=== PATIENT | female | born 1980 ===

== ENCOUNTER 2018-06-14 14:39 | Emergency (ER) | payer SELFPAY ==
[2018-06-14 14:45] VITALS: BP 108/67; PULSE 62; RESP 20; TEMP 98.9; O2SAT 98
[2018-06-14] MEDS ORDERED: Lactated Ringer's 1,000 ML IV STA (15:07)
--- NOTE | 2018-06-14 15:34 | ED PDOC ---
HPI: Abdomen Time Seen by Provider: 06/14/18 15:04 Chief Complaint (Nursing): Abdominal Pain Chief Complaint (Provider): Abdominal Pain History Per: Patient History/Exam Limitations: no limitations Onset/Duration Of Symptoms: Days Current Symptoms Are (Timing): Still Present Location Of Pain/Discomfort: RUQ Additional Complaint(s): 37 y/o female who is at 7 weeks presents to the ED for evaluation of RUQ abdominal pain, onset two months. Patient hadn't yet confirmed that she was until her arrival to the ED. Patient reports abdominal pain has been worsening since onset and is associated with nausea and breast tenderness. Patient notes pain worsened over the last few days thus prompting today's visit. Patient has a history of Laproscopic surgery to relieve obstruction of the left fallopian tube. Patient states she does not have a functioning right fallopian tube. Patient notes her periods are irregular. Otherwise, patient denies vomiting, vaginal discharge, vaginal bleeding, diarrhea and constipation. Patient additionally has a history of seizure disorder for which she takes carbamazepine. Patient notes of taking carbamazepine through previous . PMD: [place] [place]. Abnormal Vaginal Bleeding: No : 2 Para: 1 Past Medical History Reviewed: Historical Data, Nursing Documentation, Vital Signs Vital Signs: Last Vital Signs Temp 98.9 F 06/14/18 14:42 Pulse 62 06/14/18 14:42 Resp 20 06/14/18 14:42 BP 108/67 06/14/18 14:42 Pulse Ox 98 06/14/18 14:42 - Medical History PMH: Seizures - Surgical History Other surgeries: Laproscopic surgery to relieve obstruction of the left fallopian tube - Family History Family History: States: No Known Family Hx - Social History Current smoker - smoking cessation education provided: No Alcohol: None Drugs: Denies - Immunization History Hx Tetanus Toxoid Vaccination: No Hx Influenza Vaccination: No Hx Pneumococcal Vaccination: No - Home Medications Home Medications: Ambulatory Orders Medication Instructions Recorded Iron 1 tab PO DAILY 05/12/13 Metronidazole 500 mg PO BID 05/12/13 Famotidine [Pepcid] 40 mg PO DAILY PRN #14 tab 06/14/18 Folic Acid 0.4 mg PO DAILY #30 tablet 06/14/18 Multivit/Folic Acid/I 1 tab PO DAILY #100 tab 06/14/18 [ Plus] - Allergies Allergies/Adverse Reactions: Allergies Allergy/AdvReac Type Severity Reaction Status Date / Time No Known Allergies Allergy Verified 06/14/18 14:41 Review of Systems ROS Statement: Except As Marked, All Systems Reviewed And Found Negative Cardiovascular: Positive for: Other (breast tenderness) Gastrointestinal: Positive for: Nausea, Abdominal Pain. Negative for: Vomiting, Diarrhea, Constipation Genitourinary Female: Negative for: Vaginal Discharge, Vaginal Bleeding Physical Exam - Reviewed Nursing Documentation Reviewed: Yes Vital Signs Reviewed: Yes - Physical Exam Appears: Positive for: Non-toxic, No Acute Distress Head Exam: Positive for: ATRAUMATIC, NORMOCEPHALIC Skin: Positive for: Warm, Dry Eye Exam: Positive for: EOMI, PERRL ENT: Negative for: Pharyngeal Erythema, Tonsillar Exudate Neck: Positive for: Painless ROM, Supple Cardiovascular/Chest: Positive for: Regular Rate, Rhythm. Negative for: Murmur Respiratory: Positive for: Normal Breath Sounds. Negative for: Respiratory Distress Gastrointestinal/Abdominal: Positive for: Soft, Tenderness (Tenderness to deep palpation of the RUQ. Mild Pelvic tenderness to palpation). Negative for: Other ([place]'s [place] Tenderness. Dandre's Sign) Back: Positive for: Normal Inspection. Negative for: Decreased ROM Extremity: Positive for: Normal ROM. Negative for: Deformity Lymphatic: Negative for: Adenopathy Neurological/Psych: Positive for: Awake, Alert. Negative for: Motor/Sensory Deficits - Laboratory Results Result Diagrams: 06/14/18 15:15 06/14/18 15:15 - ECG O2 Sat by Pulse Oximetry: 98 (RA) Pulse Ox Interpretation: Normal Medical Decision Making Medical Decision Making: Time: 1525 Impression: Abdominal pain in early Differentials include but not limited to ectopic , round ligament pain, adhesion pain, cholelithiasis, hepatitis and pancreatitis. Plan: -- [id number] -- CMP -- Liipase -- CBC with Differentials -- Lactated Ringer's IV 1000 mls/hr -- IV Insertion -- US Abdomen Limited (GB Included) -- US OB Transvaginal Time: 1712 ABDOMEN US Date of service: 06/14/2018 HISTORY: RUQ pain COMPARISON: None. TECHNIQUE: Sonographic evaluation of the right upper quadrant of the abdomen. FINDINGS: LIVER: Measures 18 cm in length. Normal echogenicity of the liver parenchyma. No mass. No intrahepatic bile duct dilatation. Main portal vein and hepatic veins demonstrate normal directional flow. GALLBLADDER: Contracted. Echogenic avascular structure in the gallbladder fundus, difficult to evaluate, possibly polyp COMMON BILE DUCT: Measures 3 mm. No stones. No dilatation. PANCREAS: Unremarkable as visualized. No mass. No ductal dilatation. RIGHT KIDNEY: Measures 10.5 x 5.1 x 4.3 cm in length. Normal echogenicity. No calculus, mass, or hydronephrosis. AORTA: No aneurysmal dilatation. IVC: Unremarkable. OTHER FINDINGS: None . IMPRESSION: Mild hepatomegaly. Contracted gallbladder with small echogenic avascular nonshadowing structure, possibly representing a polyp or tumefactive sludge. Follow-up is advised. Time: 1747 OB US RESULTS Date of service: 06/14/2018 PROCEDURE: OB Pelvic Ultrasound HISTORY: pain early r/o ectopic LMP: 04/25/2018 COMPARISON: None available. FINDINGS: UTERUS: Gestational sac: Single intrauterine gestation. Mean sac diameter measures 1.7 cm compatible with estimated gestational age of 6 weeks, 0 days Yolk sac: Measures 0.2 cm pole: [place]-rump length measures 0.6 cm compatible with estimated gestational age of 6 weeks, 3 days Heart rate: 120 bpm. age (Ultrasound estimated): 6 weeks, 2 days [place]-gestational hemorrhage: None. Date of delivery (Ultrasound estimated) : 02/05/2019 Uterus measures 8.8 x 5.8 x 7.1 cm. Normal in size and appearance. CERVIX: Measures 3.4 cm. Long and closed. No cervical abnormality seen. RIGHT OVARY: Measures 2.8 x 2.1 x 2.0 cm. No mass lesion. Normal flow. LEFT OVARY: Measures 3.6 x 2.2 x 1.8 cm. Corpus luteum measures 1.8 x 2.0 x 1.9 cm no solid mass. Normal flow. FREE FLUID: None. OTHER FINDINGS: None. IMPRESSION: Single live intrauterine gestation with average ultrasound age of 6 weeks, 2 days. heart rate 120 beats per minute. Cervix long and closed. DW pt findings and plan of care. Requests prescription of folic acid in addition to vitamin as she was told by previous [employer] that she requires extra folic acid (due to carbamazepine?) Scribe Attestation: Documented by Odell Marie, acting as a scribe Annemarie Briceno MD. Provider Scribe Attestation: All medical record entries made by the Scribe were at my direction and personally dictated by me. I have reviewed the chart and agree that the record accurately reflects my personal performance of the history, physical exam, medical decision making, and the department course for this patient. I have also personally directed, reviewed, and agree with the discharge instructions and disposition. Disposition - Clinical Impression Clinical Impression: Abdominal pain during Counseled Patient/Family Regarding: Studies Performed, Diagnosis, Need For Followup, Rx Given - Disposition [facility] ([facility]) Disposition: Routine/Home Disposition Time: 18:13 Condition: STABLE Prescriptions: Famotidine [Pepcid] 40 mg PO DAILY PRN #14 tab PRN Reason: reflux Folic Acid 0.4 mg PO DAILY #30 tablet Multivit/Folic Acid/I [ Plus] 1 tab PO DAILY #100 tab Instructions: Stomach Pain in Early Print Language: ROMANIAN
[2018-06-14 15:42] LABS: BASO # 0.1 K/uL (0.0-0.2); BASO % 0.8 % (0.0-2.0); EOS # 0.5 K/uL (0.0-0.7); EOS % 5.1 % (0.0-4.0); HEMOGLOBIN 12.7 g/dL (12.0-16.0); LYMPH # 2.7 K/uL (1.0-4.3); LYMPH % 29.8 % (20.0-40.0); MEAN CELL VOLUME 88.7 fl (81.0-99.0); MEAN CORPUSCULAR HEMOGLOBIN 30.2 pg (27.0-31.0); MEAN PLATELET VOLUME 9.3 fl (7.2-11.7); MONO # 0.4 K/uL (0.0-0.8); NEUT # 5.3 K/uL (1.8-7.0); NEUT % 59.3 % (50.0-75.0); RBC 4.21 Mil/uL (3.80-5.20); RED CELL DISTRIBUTION WIDTH 13.7 % (11.5-14.5); WHITE BLOOD COUNT 8.9 K/uL (4.8-10.8)
[2018-06-14 15:50] LABS: ALB/GLOB RATIO 1.4 (1.0-2.1); ALBUMIN 3.8 g/dL (3.5-5.0); ALT/SGPT 27 U/L (9-52); AST/SGOT 18 U/L (14-36); BLOOD UREA NITROGEN 8 mg/dl (7-17); CALCIUM 8.9 mg/dL (8.4-10.2); GFR NON-AFRICAN AMERICAN > 60; LIPASE 55 U/L (23-300)
--- NOTE | 2018-06-14 17:17 | US ---
Date of service: 06/14/2018 HISTORY: RUQ pain COMPARISON: None. TECHNIQUE: Sonographic evaluation of the right upper quadrant of the abdomen. FINDINGS: LIVER: Measures 18 cm in length. Normal echogenicity of the liver parenchyma. No mass. No intrahepatic bile duct dilatation. Main portal vein and hepatic veins demonstrate normal directional flow. GALLBLADDER: Contracted. Echogenic avascular structure in the gallbladder fundus, difficult to evaluate, possibly polyp COMMON BILE DUCT: Measures 3 mm. No stones. No dilatation. PANCREAS: Unremarkable as visualized. No mass. No ductal dilatation. RIGHT KIDNEY: Measures 10.5 x 5.1 x 4.3 cm in length. Normal echogenicity. No calculus, mass, or hydronephrosis. AORTA: No aneurysmal dilatation. IVC: Unremarkable. OTHER FINDINGS: None . IMPRESSION: Mild hepatomegaly. Contracted gallbladder with small echogenic avascular nonshadowing structure, possibly representing a polyp or tumefactive sludge. Follow-up is advised.
--- NOTE | 2018-06-14 17:52 | US ---
Date of service: 06/14/2018 PROCEDURE: OB Pelvic Ultrasound HISTORY: pain early r/o ectopic LMP: 04/25/2018 COMPARISON: None available. FINDINGS: UTERUS: Gestational sac: Single intrauterine gestation. Mean sac diameter measures 1.7 cm compatible with estimated gestational age of 6 weeks, 0 days Yolk sac: Measures 0.2 cm pole: [place]-rump length measures 0.6 cm compatible with estimated gestational age of 6 weeks, 3 days Heart rate: 120 bpm. age (Ultrasound estimated): 6 weeks, 2 days [place]-gestational hemorrhage: None. Date of delivery (Ultrasound estimated) : 02/05/2019 Uterus measures 8.8 x 5.8 x 7.1 cm. Normal in size and appearance. CERVIX: Measures 3.4 cm. Long and closed. No cervical abnormality seen. RIGHT OVARY: Measures 2.8 x 2.1 x 2.0 cm. No mass lesion. Normal flow. LEFT OVARY: Measures 3.6 x 2.2 x 1.8 cm. Corpus luteum measures 1.8 x 2.0 x 1.9 cm no solid mass. Normal flow. FREE FLUID: None. OTHER FINDINGS: None. IMPRESSION: Single live intrauterine gestation with average ultrasound age of 6 weeks, 2 days. heart rate 120 beats per minute. Cervix long and closed.
== END 2018-06-14 18:36 | disposition home or self-care (01) ==
LOC: H.ER 14:39
DX: O26.91 Pregnancy related conditions, unspecified, first trimester (principal)
CPT/HCPCS: 76705; 76817; 80053; 81025; 83690; 84702; 85025; 99284; J7120